=== PATIENT | male | born 1980 | race African-American/Black ===

== ENCOUNTER → 2021-02-13 16:00 | Outpatient (CLI) | payer OTHER, SELFPAY ==
--- NOTE | 2021-02-13 08:00 | VAS_PTH ---
PATIENT: DILIA RIVERA LOC: [facility] U#:[id number] AGE/SX: 45/M ROOM: RE02/13/[address]: Dr. Junior Arroyo MD : 1980 BED: DIS: SPEC #: [id number] RECD: 02/13/21 15:49 STATUS: BUBBA JASVIR #: [id number] DEEPAK: 02/13/21 08:[address]: Junior Arroyo DEPT: SURGICAL PATHOLOGY RECD BY: Greg Kelly Tissues: A - Vas deferens, NOS B - Vas deferens, NOS Procedures: Surgery Specimen Level II HEADER OPERATION: Bilateral partial vasectomy PRE-OP DIAGNOSIS: Sterilization TISSUE SUBMITTED: A ? Left vas deferens, B ? Right vas deferens MICROSCOPIC DIAGNOSIS A. Left vas deferens, segmental vasectomy: Complete segment of vas deferens with no pathologic change. B. Right vas deferens, segmental vasectomy: Complete segment of vas deferens with no pathologic change. AM:saji 02/17/2021 MICROSCOPIC DESCRIPTION Slides are reviewed. GROSS DESCRIPTION A - Received is one container designated left vas deferens. The specimen consists of a cylindrical segment of pink-e[place]anks soft tissue measuring 1.5 cm in length and 0.2 cm in maximum diameter. The specimen is submitted in one cassette for post-fixation sectioning. B - Received is one container designated right vas deferens. The specimen consists of a cylindrical segment of pink-e[place]anks soft tissue measuring 0.6 cm in length and 0.2 cm in maximum diameter. The specimen is submitted in one cassette for post-fixation sectioning. / AM:saji 02/16/21 TC:4 CPT: 78257 x2
[2021-02-13 08:07] VITALS: BMI 32.5
== END ==
PROVIDERS: Referring Provider Surgery; Visit Provider Surgery
DX: Z30.2 Encounter for sterilization (principal)
CPT/HCPCS: 88302

== ENCOUNTER → 2021-03-07 | Outpatient (CLI) | payer OTHER, SELFPAY ==
[2021-03-07 09:04] LABS: Semen Analysis Post Vas SEE PATHOLOGY REVIEW
== END | disposition home or self-care (01) ==
PROVIDERS: PCP Nurse Practitioner Primary Care; Referring Provider Surgery; Visit Provider Surgery
DX: Z30.2 Encounter for sterilization (principal)
CPT/HCPCS: 89321

== ENCOUNTER → 2021-04-04 | Outpatient (CLI) | payer OTHER, SELFPAY ==
[2021-04-06 14:50] LABS: Semen Analysis Post Vas REVIEWED
== END | disposition home or self-care (01) ==
LOC: LABSPEC 10:53
PROVIDERS: PCP Nurse Practitioner Primary Care; Referring Provider Surgery; Visit Provider Surgery
DX: Z30.2 Encounter for sterilization (principal)
CPT/HCPCS: 89321